=== PATIENT | male | born 1950 | race Caucasian/White ===

== ENCOUNTER 2016-05-07 20:30 | Emergency (ER) | payer MEDICARE, OTHER ==
[2016-05-07 20:41] VITALS: BP 171/84; PULSE 62; TEMP 97.8; BMI 29.9
--- NOTE | 2016-05-07 20:52 | PDOC ---
History of Present Illness - General Chief Complaint: Pain Stated Complaint: BACK PAIN, LEG PAIN Time Seen by Provider: 05/07/16 20:40 - History of Present Illness Initial Comments: This 65-year-old man with a history of type 2 diabetes mellitus, atherosclerotic heart disease (s/p coronary artery bypass surgery several years ago) presents with several day history of pain in the lower back. Patient describes pain as being on both sides of the lower back, worse with movement and bending and radiating to bilateral posterior proximal thighs. He denies overuse or trauma. He has no anterior abdominal pain. He states he had similar symptoms once in the past, for which he received Tylenol with codeine by his PMD with relief of symptoms. Patient has a history of gout for which he takes allopurinol but states that this does not feel like his gout pain which he usually feels in his feet. He denies numbness or weakness in the lower extremities. No previous history of diabetic neuropathy. Past History - Past Medical History Allergies/Adverse Reactions: Allergies Allergy/AdvReac Type Severity Reaction Status Date / Time No Known Allergies Allergy Verified 05/07/16 20:36 Home Medications: Ambulatory Orders Atenolol [Tenormin -] 100 mg PO DAILY 11/25/11 Sitagliptin Phosphate [Januvia] 100 mg PO DAILY 11/25/11 Diclofenac Sodium [Voltaren -] 75 mg PO BID PRN #20 tablet. 05/07/16 Rosuvastatin [Crestor -] 10 mg PO DAILY 05/07/16 Cardiac Disorders: Yes (CAD) Diabetes: Yes HTN: Yes Hypercholesterolemia: Yes - Surgical History Abdominal Surgery: Yes Cardiac Surgery: Yes (CABG) - Psycho/Social/Smoking Cessation Hx Anxiety: No Suicidal Ideation: No Smoking Status: No Smoking History: Never smoked Number of Cigarettes Smoked Daily: 0 Information on smoking cessation initiated: No Hx Alcohol Use: No Drug/Substance Use Hx: No Substance Use Type: None Review of Systems - Review of Systems Able to Perform ROS?: Yes Comments:: 12 point review of systems is negative except for what is noted in the history of present illness *Physical Exam - Vital Signs Last Vital Signs Temp Pulse Resp BP Pulse Ox 97.8 F 62 18 171/84 99 05/07/16 20:30 05/07/16 20:30 05/07/16 20:30 05/07/16 20:30 05/07/16 20:30 - Physical Exam Comments: GENERAL: The patient is awake, alert, and fully oriented, in no acute distress. Vital signs as noted. HEAD: Normal with no signs of trauma. EYES: Pupils equal, round and reactive to light, extraocular movements intact, sclera anicteric, conjunctiva clear with no pallor. ENT: moist mucous membranes. Ears normal, nares patent, oropharynx clear without exudates. NECK: Normal range of motion, supple without lymphadenopathy, JVD, or masses. LUNGS: Breath sounds equal, clear to auscultation bilaterally. No wheeze/ crackles. HEART: Regular rate and rhythm, normal S1 and S2 without murmur or rub. ABDOMEN: Soft/nontender/nondistended. BS wnl. No guarding or rebound. No palpable masses. No hepatosplenomegaly. EXTREMITIES: Normal range of motion, no edema. No clubbing or cyanosis. No cords, erythema, or tenderness. NEUROLOGICAL: Cranial nerves II through XII grossly intact. Normal speech, normal gait pain with straight leg raising at 45 degrees bilaterally; motor 5/5 throughoutno sensory defi PSYCH: Normal mood, normal affect. SKIN: Warm, Dry, normal turgor, no rashes or lesions noted. ED Treatment Course - LABORATORY CBC & Chemistry Diagram: 05/07/16 21:30 05/07/16 21:30 Medical Decision Making - Medical Decision Making This 65-year-old man with a history of diabetes mellitus and atherosclerotic heart disease, presents with a few day history of lower back pain, worse with movement and radiating to posterior proximal thighs. No history of overuse or trauma. The patient has had similar symptoms in the past which resolved with Tylenol No. 3 with codeine. Exam shows mild pain with straight leg raising bilaterally but no local tenderness and no evidence of abdominal masses/aneurysm. Bilateral femoral pulses are palpable. CBC and chemistry profile was sent to evaluate for renal functioning. Uric acid level was sent CBC is essentially normal. Chemistry profile shows grossly normal renal function with a BUN of 25 and creatinine of 1.3;random glu is 238; remainder of the values show no significant abnormalities. Uric acid is normal. Clinical presentation most consistent with musculoskeletal etiology for his pain. However, because of the patient's significant past medical history of diabetes mellitus and atherosclerotic disease, he will need further workup to fully rule out vascular etiology. Results and plan discussed with the patient.the patient understands and agrees to plan. Patient will be given Toradol 30 mg IV for anti-inflammatory and analgesic effects. Patient should follow-up with his PMD within 2-3 days. Diclofenac 75 mg twice a day as needed for pain will be prescribed; he should return to the ER if he has more severe pain *DC/Admit/Observation/Transfer Diagnosis at time of Disposition: Low back pain Qualifiers: Chronicity: chronic Back pain laterality: bilateral Sciatica presence: with sciatica Sciatica laterality: bilateral sciatica Qualified Code(s): M54.42 - Lumbago with sciatica, left side - Discharge Dispostion Disposition: HOME Condition at time of disposition: Stable - Prescriptions Prescriptions: Diclofenac Sodium [Voltaren -] 75 mg PO BID PRN #20 tablet.dr GARCIA Reason: Pain - Referrals Referrals: STAFF,NOT ON [Primary Care Provider] - - Patient Instructions Printed Discharge Instructions: Low Back Pain Additional Instructions: Diclofenac 75 mg twice a day as needed ; take with food take other medications as prescribed followup with your doctor within 2-3 days return to ER if you have worsening pain Print Language: GHANAIAN
[2016-05-07 21:53] LABS: BASOPHIL 0.6 % (0-2.0); EOSINOPHIL 3.3 % (0-4.5); MCH 28.1 pg (25.7-33.7); MCHC 31.6 g/dl (32.0-35.9); MEAN CELL VOLUME 88.8 fl (80-96); MEAN PLT VOLUME 8.7 fl (7.5-11.1); PLATELET COUNT 174 K/MM3 (134-434); RDW 13.8 % (11.9-15.9); WHITE BLOOD COUNT 6.2 K/mm3 (4.0-10.0)
[2016-05-07 22:02] LABS: ALBUMIN 4.3 g/dl (3.5-5.0); CALCIUM 9.6 mg/dl (8.4-10.2); CREATININE 1.3 mg/dl (0.6-1.3)
[2016-05-07] MEDS ORDERED: KETOROLAC TROMETHAMINE 30 MG/1 ML VIAL IVPUSH ONE (22:22)
[2016-05-07] MEDS ORDERED: KETOROLAC TROMETHAMINE 30 MG/1 ML VIAL ONE (22:23)
== END 2016-05-07 22:36 | disposition home or self-care (01) ==
LOC: FER 20:30
PROC: 3E0333Z Introduction of Anti-inflammatory into Peripheral Vein, Percutaneous Approach (ICD-10-PCS; principal; 2016-05-07)
DX: M54.42 Lumbago with sciatica, left side (principal); E11.9 Type 2 diabetes mellitus without complications; I25.10 Atherosclerotic heart disease of native coronary artery without angina pectoris; Z95.1 Presence of aortocoronary bypass graft; I10 Essential (primary) hypertension; E78.00 Pure hypercholesterolemia, unspecified
CPT/HCPCS: 36415; 80053; 84550; 85025; 96374; 99283-25

== ENCOUNTER 2016-07-21 19:19 | Emergency (ER) | payer MEDICARE, OTHER ==
[2016-07-21 19:29] VITALS: BP 144/100; PULSE 55; TEMP 98.2; BMI 27.9
--- NOTE | 2016-07-21 19:48 | PDOC ---
[id number] No Limitations - History of Present Illness Initial Comments: 07/21/16 21:09 The patient is a 65 year old male, with a significant past medical history of type 2 diabetes mellitus, atherosclerotic heart disease (s/p coronary artery bypass surgery several years ago) hypertension, hyperlipidemia, and gout, who presents to the emergency department with intermittent dizziness for the past two weeks. The patient reports that he feels dizzy and this sensation is exacerbated when he moves his head. He states that he has experienced this sensation previously. 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 Allergies: None Past surgical history: coronary artery bypass surgery Social history: Never smoked <Britney Fernandez - Last Filed: 07/21/16 21:16> <Terri Valdivia - Last Filed: 07/22/16 01:27> - General Chief Complaint: Lightheaded Stated Complaint: DIZZINESS Time Seen by Provider: 07/21/16 19:38 Past History <Britney Fernandez - Last Filed: 07/21/16 21:16> - Past Medical History Cardiac Disorders: Yes (CAD) Diabetes: Yes HTN: Yes Hypercholesterolemia: Yes - Surgical History Abdominal Surgery: Yes Cardiac Surgery: Yes (CABG) - Psycho/Social/Smoking Cessation Hx Anxiety: No Suicidal Ideation: No Smoking Status: No Smoking History: Never smoked Number of Cigarettes Smoked Daily: 0 Hx Alcohol Use: No Drug/Substance Use Hx: No Substance Use Type: None <Terri Valdivia - Last Filed: 07/22/16 01:27> - Past Medical History Allergies/Adverse Reactions: Allergies Allergy/AdvReac Type Severity Reaction Status Date / Time No Known Allergies Allergy Verified 05/07/16 20:36 Home Medications: Ambulatory Orders Atenolol [Tenormin -] 100 mg PO DAILY 11/25/11 Diclofenac Sodium [Voltaren -] 75 mg PO BID PRN #20 tablet. 05/07/16 Allopurinol [Zyloprim -] 100 mg PO DAILY 07/21/16 Lisinopril [Prinivil] 5 mg PO DAILY 07/21/16 Meclizine HCl [Antivert -] 25 mg PO TID PRN #21 tablet 07/21/16 Metformin HCl [Metformin HCl ER] 1,000 mg PO DAILY 07/21/16 Review of Systems - Review of Systems Able to Perform ROS?: Yes Comments:: 07/21/16 21:10 CONSTITUTIONAL: +intermittent dizziness Absent: fever, no chills, no fatigue EYES: Absent: visual changes ENT: Absent: ear pain, no sore throat CARDIOVASCULAR: Absent: chest pain, no palpitations RESPIRATORY: Absent: cough, no SOB GI: Absent: abdominal pain, no nausea, no vomiting, no constipation, no diarrhea GENITOURINARY: Absent: dysuria, no frequency, no hematuria MUSCULOSKELETAL: Absent: back pain, no arthralgia, no myalgia SKIN: Absent: rash <Britney Fernandez - Last Filed: 07/21/16 21:16> *Physical Exam - Vital Signs Last Vital Signs Temp Pulse Resp BP Pulse Ox 98.2 F 55 L 20 144/100 100 07/21/16 19:26 07/21/16 19:26 07/21/16 19:26 07/21/16 19:26 07/21/16 19:26 - Physical Exam Comments: 07/21/16 21:10 GENERAL: The patient is awake, alert, and fully oriented, in no acute distress. HEAD: Normal with no signs of trauma. EYES: Pupils equal, round and reactive to light, extraocular movements intact, sclera anicteric, conjunctiva clear with no pallor. ENT: Ears normal, nares patent, oropharynx clear without exudates. Moist mucous membranes. NECK: Normal range of motion, supple without lymphadenopathy, JVD, or masses. LUNGS: Breath sounds equal, clear to auscultation bilaterally. No wheeze/ crackles. HEART: Regular rate and rhythm, normal S1 and S2 without murmur or rub. ABDOMEN: Soft/nontender/nondistended. BS wnl. No guarding or rebound. No palpable masses. No hepatosplenomegaly. EXTREMITIES: Normal range of motion, no edema. No clubbing or cyanosis. No cords, erythema, or tenderness. NEUROLOGICAL: Cranial nerves II through XII grossly intact. Normal speech, normal gait. PSYCH: Normal mood, normal affect. SKIN: Warm, Dry, normal turgor, no rashes or lesions noted. <Britney Fernandez - Last Filed: 07/21/16 21:16> - Vital Signs Last Vital Signs Temp Pulse Resp BP Pulse Ox 98.2 F 55 L 20 144/100 100 07/21/16 19:26 07/21/16 19:26 07/21/16 19:26 07/21/16 19:26 07/21/16 19:26 <Terri Valdivia - Last Filed: 07/22/16 01:27> ED Treatment Course - LABORATORY CBC & Chemistry Diagram: 07/21/16 19:35 07/21/16 19:35 - ADDITIONAL ORDERS Additional order review: Laboratory Results 07/21/16 07/21/16 19:35 19:35 Sodium 134 L Potassium 4.7 Chloride 101 Carbon Dioxide 24 Anion Gap 9 BUN 24 H Creatinine 1.1 Creat Clearance w eGFR > 60 Random Glucose 236 H Calcium 9.8 Total Bilirubin 0.8 AST 27 ALT 26 D Alkaline Phosphatase 54 Creatine Kinase 102 Troponin I < 0.03 L Total Protein 7.1 Albumin 4.3 07/21/16 19:35 RBC 4.73 MCV 87.1 MCHC 33.7 RDW 13.0 MPV 8.5 Neutrophils % 65.8 Lymphocytes % 24.2 Monocytes % 6.4 Eosinophils % 3.1 Basophils % 0.5 <Britney Fernandez - Last Filed: 07/21/16 21:16> - LABORATORY CBC & Chemistry Diagram: 07/21/16 19:35 07/21/16 19:35 <Terri Valdivia - Last Filed: 07/22/16 01:27> Medical Decision Making - Medical Decision Making 07/21/16 21:16 CT Head Without Contrast Reported by: Dr. Anabel Kruger Reviewed by: Dr. Terri Valdivia Impression: There is no evidence of an acute intracranial process, intracranial hemorrhage or mass effect. There is atherosclerotic vascular calcification of the internal carotid arteries and vertebral arteries bilaterally at the skull base. Ventricular size is concordant with the degree of atrophy. The visualized portions of the orbits, paranasal and mastoid sinuses are unremarkable. If there is a clinical suspicion of an acute intracranial and if there is no clinical contraindication, MRI brain may be helpful. <Britney Fernandez - Last Filed: 07/21/16 21:16> - Medical Decision Making Documentation has been prepared under my direction and personally reviewed by me in its entirety. I attest that this documented accurately reflects all work, treatment, procedures and medical decision making performed by me. As noted above, this 65-year-old man with a history of hypertension and diabetes mellitus presents with 1 day history of positional vertigo. Patient states that he clearly has the sensation of spinning only with movement of his head: Demonstrating that hyperextending his head and turning it to the right would induce this sensation. Of note, the patient did not have significant nystagmus while he was experiencing his vertigo. Besides his HTN/DM history, patient had also been seen in the past by an ear nose and throat surgeon for tinnitus/hearing loss in the left ear. No previous significant history of vertigo, however. Patient has not had any nausea/vomiting associated with his vertigo. Exam as noted Noncontrast head CT shows no evidence of mass/stroke/other intracranial abnormality. Clinical presentation most consistent with benign positional vertigo. The patient has had no significant disabling affects of his vertigo: He is able to ambulate stably and has had no nausea or vomiting. Patient given meclizine 25 mg by mouth Patient will be discharged with instructions to follow-up with his general medical doctor within the next few days. Prescription for meclizine 25 mg up to 3 times a day as needed for vertigo the issue to his pharmacy. He should return to the emergency room if he has severe, persistent vertigo or experiences new neurologic symptoms. <Terri Valdivia - Last Filed: 07/22/16 01:27> *DC/Admit/Observation/Transfer - Attestations Scribe Attestion: 07/21/16 21:11 Documentation prepared by YASEMIN Mack, acting as emergency medical services coordinator for Terri Valdivia MD. <Britney Fernandez - Last Filed: 07/21/16 21:16> <Terri Valdivia - Last Filed: 07/22/16 01:27> Diagnosis at time of Disposition: Vertigo - Discharge Dispostion Disposition: HOME Condition at time of disposition: Stable - Prescriptions Prescriptions: Meclizine HCl [Antivert -] 25 mg PO TID PRN #21 tablet PRN Reason: Vertigo - Referrals Referrals: STAFF,NOT ON [Primary Care Provider] - Esequiel Cali MD [Staff Physician] - - Patient Instructions Printed Discharge Instructions: Benign Paroxysmal Positional Vertigo Additional Instructions: meclizine 25mg up to 3 times a day for vertigo followup with your general doctor within 2-3 days followup with ENT doctor( Dr Cali group) within 5 days return to ER if you have persistent, severe dizziness
[2016-07-21 19:58] LABS: BASOPHIL 0.5 % (0-2.0); EOSINOPHIL 3.1 % (0-4.5); MCH 29.4 pg (25.7-33.7); MCHC 33.7 g/dl (32.0-35.9); MEAN CELL VOLUME 87.1 fl (80-96); MEAN PLT VOLUME 8.5 fl (7.5-11.1); NEUTROPHILS 65.8 % (42.8-82.8); PLATELET COUNT 253 K/MM3 (134-434); WHITE BLOOD COUNT 6.1 K/mm3 (4.0-10.8)
[2016-07-21 20:13] LABS: ALBUMIN 4.3 g/dl (3.5-5.0); ALK PHOS 54 U/L (32-92); ANION GAP 9 (8-16); BILIRUBIN,TOTAL 0.8 mg/dl (0.2-1.0); CALCIUM 9.8 mg/dl (8.4-10.2); CO2 24 mmol/L (22-28); COCKROFT - GAULT 70.94; CREATININE 1.1 mg/dl (0.6-1.3); GLUCOSE,RANDOM 236 mg/dl (74-106); SGOT/AST 27 U/L (10-42); SGPT/ALT 26 U/L (10-40); TOT PROT 7.1 g/dl (6.4-8.3)
[2016-07-21 20:14] LABS: CPK(DFH) 102 IU/L (38-174)
[2016-07-21 20:24] LABS: TROPONIN I (DFP) < 0.03 ng/ml (0.03-0.50)
[2016-07-21] MEDS ORDERED: MECLIZINE HCL 25 MG TABLET (FP) PO ONE (21:17)
[2016-07-21] MEDS ORDERED: MECLIZINE HCL 25 MG TABLET (FP) ONE (21:22)
== END 2016-07-21 21:31 | disposition home or self-care (01) ==
LOC: FER 19:19
DX: R42 Dizziness and giddiness (principal); I10 Essential (primary) hypertension; E11.9 Type 2 diabetes mellitus without complications
CPT/HCPCS: 36415; 70450-TC; 80053; 82550; 84484; 85025; 99281-25

== ENCOUNTER 2020-12-19 04:25 | Day surgery (SDC) | payer OTHER ==
[2020-12-15 15:37] VITALS: BMI 26.6
[2020-12-19 11:01] VITALS: BP 197/91; PULSE 62; TEMP 98.7
== END 2020-12-19 10:50 | disposition home or self-care (01) ==
LOC: JASU-SURG 04:25
PROVIDERS: ATTEND Urology
DX: Z53.8 Procedure and treatment not carried out for other reasons (principal)
CPT/HCPCS: 82962

== ENCOUNTER 2021-06-21 05:25 | Day surgery (SDC) | payer OTHER ==
[2021-06-20 15:17] VITALS: BMI 28.1
[2021-06-21] MEDS ORDERED: MIDAZOLAM HCL 2 MG/2 ML SINGLE DOSE VIAL ONE (11:42)
[2021-06-21] MEDS ORDERED: KETOROLAC TROMETHAMINE 30 MG/1 ML VIAL ONE (11:42)
[2021-06-21 14:55] VITALS: BP 126/69; PULSE 61; TEMP 98.2
== END 2021-06-21 14:25 | disposition home or self-care (01) ==
LOC: JASU-SURG 05:25
PROVIDERS: ATTEND Urology
PROC: 0TF4XZZ Fragmentation in Left Kidney Pelvis, External Approach (ICD-10-PCS; principal; 2021-06-21 11:30)
DX: N20.0 Calculus of kidney (principal)
CPT/HCPCS: 82962; C9803-CS; U0003; U0005

== ENCOUNTER 2023-02-13 03:40 | Day surgery (SDC) | payer OTHER ==
[2023-02-11 15:31] VITALS: BMI 29.6
[2023-02-13 08:04] VITALS: RESP 18
[2023-02-13 09:47] VITALS: TEMP 97.5
[2023-02-13 13:17] VITALS: BP 164/84; PULSE 57
== END 2023-02-13 11:19 | disposition home or self-care (01) ==
LOC: JASU-ENDO 03:40
PROVIDERS: ATTEND Internal Medicine Gastroenterology
PROC: 0DJ08ZZ Inspection of Upper Intestinal Tract, Via Natural or Artificial Opening Endoscopic (ICD-10-PCS; 2023-02-13)
PROC: 0DJ08ZZ Inspection of Upper Intestinal Tract, Via Natural or Artificial Opening Endoscopic (ICD-10-PCS; 2023-02-13)
PROC: 0DJD8ZZ Inspection of Lower Intestinal Tract, Via Natural or Artificial Opening Endoscopic (ICD-10-PCS; principal; 2023-02-13 09:00)
DX: Z12.11 Encounter for screening for malignant neoplasm of colon (principal); K63.5 Polyp of colon; K21.00 Gastro-esophageal reflux disease with esophagitis, without bleeding; K29.70 Gastritis, unspecified, without bleeding; R07.9 Chest pain, unspecified; R12 Heartburn; I10 Essential (primary) hypertension; E11.42 Type 2 diabetes mellitus with diabetic polyneuropathy; Z79.4 Long term (current) use of insulin; Z79.85 Long-term (current) use of injectable non-insulin antidiabetic drugs
CPT/HCPCS: 43235; G0121; 82962

== ENCOUNTER 2023-03-27 04:08 | Day surgery (SDC) | payer OTHER ==
[2023-03-22 11:05] VITALS: BMI 29.6
[2023-03-27 11:43] VITALS: BP 158/59; PULSE 56; RESP 18; TEMP 97
== END 2023-03-27 12:00 | disposition home or self-care (01) ==
LOC: JASU-ENDO 04:08
PROVIDERS: ATTEND Internal Medicine Gastroenterology
PROC: 0DBH8ZX Excision of Cecum, Via Natural or Artificial Opening Endoscopic, Diagnostic (ICD-10-PCS; 2023-03-27)
PROC: 0DB98ZX Excision of Duodenum, Via Natural or Artificial Opening Endoscopic, Diagnostic (ICD-10-PCS; 2023-03-27)
PROC: 0DB78ZX Excision of Stomach, Pylorus, Via Natural or Artificial Opening Endoscopic, Diagnostic (ICD-10-PCS; 2023-03-27)
PROC: 0DB68ZX Excision of Stomach, Via Natural or Artificial Opening Endoscopic, Diagnostic (ICD-10-PCS; 2023-03-27)
PROC: 0DBK8ZX Excision of Ascending Colon, Via Natural or Artificial Opening Endoscopic, Diagnostic (ICD-10-PCS; principal; 2023-03-27 10:00)
DX: Z12.11 Encounter for screening for malignant neoplasm of colon (principal); K12.2 Cellulitis and abscess of mouth; K63.5 Polyp of colon; K31.89 Other diseases of stomach and duodenum
CPT/HCPCS: 82962; 88305-TC; 88342-TC

== ENCOUNTER 2023-06-17 18:00 | Observation (INO) | payer OTHER ==
[2023-06-17 18:21] VITALS: BMI 29.9
[2023-06-17 19:00] LABS: BASO % 0.8 % (0-2.0); EOS % 3.8 % (0-4.5); HEMATOCRIT 34.9 % (35.4-49); HEMOGLOBIN 12.1 GM/dL (11.7-16.9); LYMPH % 24.7 % (8-40); MCH 30.2 pg (25.7-33.7); MCHC 34.6 g/dl (32.0-35.9); MEAN CELL VOLUME 87.2 fl (80-96); MONO % 9.3 % (3.8-10.2); NEUT % 61.4 % (42.8-82.8); PLATELET COUNT 190 10^3/uL (134-434); RDW 13.3 % (11.9-15.9); WHITE BLOOD COUNT 6.1 K/mm3 (4.0-10.0)
[2023-06-17 19:02] LABS: INR 1.04 (0.83-1.09); PROTHROMBIN TIME (PATIENT) 12.1 SEC (9.7-13.0)
[2023-06-17 19:05] LABS: ACTIVATED PTT 31.5 SECONDS (25.2-36.5)
[2023-06-17 19:20] LABS: POTASSIUM 4.9 mmol/L (3.5-5.1)
[2023-06-17 19:23] LABS: CALCIUM 8.8 mg/dL (8.5-10.1)
[2023-06-17 19:24] LABS: ALBUMIN 3.5 g/dl (3.4-5.0)
[2023-06-17 19:25] LABS: BLOOD UREA NITROGEN 18.6 mg/dL (7-18)
[2023-06-17 19:27] LABS: CREATININE 1.3 mg/dL (0.55-1.3)
[2023-06-17 19:28] LABS: TOT PROT 6.3 g/dl (6.4-8.2)
[2023-06-17 19:30] LABS: BILIRUBIN,TOTAL 0.8 mg/dL (0.2-1)
[2023-06-17 22:50] LABS: URINE APPEARANCE CLEAR; URINE BILIRUBIN NEGATIVE (NEGATIVE); URINE COLOR YELLOW; URINE GLUCOSE (UA) 3+ (NEGATIVE); URINE KETONE NEGATIVE (NEGATIVE); URINE LEUK ESTERASE NEGATIVE (NEGATIVE); URINE NITRITE NEGATIVE (NEGATIVE); URINE PROTEIN NEGATIVE (NEGATIVE); URINE UROBILINOGEN 0.2 mg/dL (0.2-1.0)
[2023-06-18 06:20] VITALS: TEMP 98
[2023-06-18 07:01] LABS: BASO % 0.9 % (0-2.0); EOS % 4.9 % (0-4.5); HEMATOCRIT 36.8 % (35.4-49); HEMOGLOBIN 12.4 GM/dL (11.7-16.9); LYMPH % 31.7 % (8-40); MCH 29.3 pg (25.7-33.7); MCHC 33.6 g/dl (32.0-35.9); MEAN CELL VOLUME 87.2 fl (80-96); MEAN PLT VOLUME 7.9 fl (7.5-11.1); MONO % 9.4 % (3.8-10.2); NEUT % 53.1 % (42.8-82.8); PLATELET COUNT 189 10^3/uL (134-434); RBC 4.22 M/mm3 (4.00-5.60); RDW 13.5 % (11.9-15.9); WHITE BLOOD COUNT 5.1 K/mm3 (4.0-10.0)
[2023-06-18 07:19] LABS: POTASSIUM 4.3 mmol/L (3.5-5.1)
[2023-06-18 07:23] LABS: ALBUMIN 3.1 g/dl (3.4-5.0); BLOOD UREA NITROGEN 18.4 mg/dL (7-18); CALCIUM 8.9 mg/dL (8.5-10.1); MAGNESIUM 1.5 mg/dL (1.8-2.4)
[2023-06-18 07:26] LABS: CREATININE 1.2 mg/dL (0.55-1.3); PHOSPHOROUS 3.3 mg/dL (2.5-4.9)
[2023-06-18] MEDS ORDERED: MAGNESIUM SULFATE IN WATER 2 GM/50 ML IVPB IVPB ONE (09:23)
[2023-06-18] MEDS: INSULIN ASPART SLIDING SCALE (NOVOLOG) 1 VIAL SQ SCH (09:31)
[2023-06-18] MEDS: MAGNESIUM SULF 50% (8.12 MEQ/2 ML-1 GM VIAL) IVPB ONE (09:32)
[2023-06-18] MEDS: ENOXAPARIN NA (PORCINE) 40 MG/0.4 ML DISP.SYRIN SQ SCH (12:05)
[2023-06-18 12:21] VITALS: BP 160/76; PULSE 72; RESP 18
== END 2023-06-18 13:45 | disposition left against medical advice (07) ==
LOC: JER 18:00 → JERBED 21:10
PROVIDERS: ADMIT Internal Medicine; ATTEND Internal Medicine
PROC: 3E023GC Introduction of Other Therapeutic Substance into Muscle, Percutaneous Approach (ICD-10-PCS; principal; 2023-06-17)
PROC: 3E013VG Introduction of Insulin into Subcutaneous Tissue, Percutaneous Approach (ICD-10-PCS; 2023-06-17)
PROC: 3E033GC Introduction of Other Therapeutic Substance into Peripheral Vein, Percutaneous Approach (ICD-10-PCS; 2023-06-17)
DX: Z04.1 Encounter for examination and observation following transport accident (principal); I25.10 Atherosclerotic heart disease of native coronary artery without angina pectoris; E11.9 Type 2 diabetes mellitus without complications; I11.0 Hypertensive heart disease with heart failure; E78.5 Hyperlipidemia, unspecified; Z29.89 Encounter for other specified prophylactic measures; V49.9XXA Car occupant (driver) (passenger) injured in unspecified traffic accident, initial encounter; Y93.89 Activity, other specified; Y92.410 Unspecified street and highway as the place of occurrence of the external cause
CPT/HCPCS: 36415; 70450-TC; 70496-TC; 70498-TC; 71045-TC-FY; 72170-TC-FY; 80053; 80061; 81003; 82550; 82962; 83036; 83735; 84100; 84443; 84484; 85025; 85610; 85730; 86850; 86900; 86901; 93005; 93010; 99285-25; G0378

== ENCOUNTER 2023-11-06 04:39 | Day surgery (SDC) | payer OTHER ==
[2023-11-05 16:28] VITALS: BMI 29.8
[2023-11-06] MEDS: TETRACAINE 0.5% OPHTH SOLN 2 ML BOTTLE OS ONE
[~2023-11-06 04:39] MED LIST: ACETAMINOPHEN 325 MG TABLET (FP) PO PRN
[2023-11-06] MEDS ORDERED: LIDOCAINE HCL/PF 1% SDV 5ML VIAL ONE (07:28)
[2023-11-06] MEDS ORDERED: LIDOCAINE HCL/PF 2% SDV 5ML VIAL ONE (07:28)
[2023-11-06] MEDS ORDERED: PHENYLEPHRINE/KETOROLAC 4 ML VIAL IO ONE (07:29)
[2023-11-06] MEDS ORDERED: BSS (NA/CA/MG/K) BALANCED SALT SOLUTION OPHTH SOLN 15 ML BOTTLE ONE (07:29)
[2023-11-06] MEDS ORDERED: BUPIVACAINE HCL/PF 0.75% 10 ML VIAL ONE (07:29)
[2023-11-06] MEDS ORDERED: POVIDONE-IODINE 5% OPHTHALMIC PREP 30 ML SOLUTION ONE (07:29)
[2023-11-06] MEDS ORDERED: CYCLOPENTOLATE HCL 1% OPHTH SOLN 2 ML BOTTLE ONE (10:10)
[2023-11-06] MEDS ORDERED: OFLOXACIN 0.3% OPHTHALMIC SOLUTION 5 ML BOTTLE ONE (10:10)
[2023-11-06] MEDS ORDERED: PHENYLEPHRINE 2.5% OPTHALMIC DROP 2ML BOTTLE ONE (10:10)
[2023-11-06] MEDS ORDERED: KETOROLAC TROMETHAMINE 0.5% EYE DROP 1 DROP DROPS ONE (10:10)
[2023-11-06] MEDS ORDERED: TROPICAMIDE 1% OPHTH SOLN 15 ML BOTTLE ONE (10:10)
[2023-11-06] MEDS: CYCLOPENTOLATE HCL 1% OPHTH SOLN 2 ML BOTTLE OP SCH (10:22)
[2023-11-06] MEDS: KETOROLAC TROMETHAMINE 0.5% EYE DROP 1 DROP DROPS OP SCH (10:22)
[2023-11-06] MEDS: TROPICAMIDE 1% OPHTH SOLN 15 ML BOTTLE OP SCH (10:22)
[2023-11-06] MEDS: OFLOXACIN 0.3% OPHTHALMIC SOLUTION 5 ML BOTTLE OP SCH (10:23)
[2023-11-06] MEDS: PHENYLEPHRINE 2.5% OPHTH SOLN 15 ML BOTTLE OP SCH (10:23)
[2023-11-06 10:34] VITALS: RESP 18
[2023-11-06] MEDS ORDERED: MIDAZOLAM HCL 2 MG/2 ML SINGLE DOSE VIAL ONE (11:45)
[2023-11-06] MEDS ORDERED: PROPOFOL 20 ML ONE (11:45)
[2023-11-06] MEDS: LIDOCAINE HCL/PF 2% SDV 5ML VIAL PNB ONE (11:54)
[2023-11-06] MEDS: BUPIVACAINE HCL/PF 0.75% 10 ML VIAL NR ONE (11:54)
[2023-11-06] MEDS: BSS (NA/CA/MG/K) BALANCED SALT SOLUTION OPHTH SOLN 15 ML BOTTLE OS ONE ×2 (12:01)
[2023-11-06] MEDS: LIDOCAINE HCL 1%, 10 MG/ML (20ML VIAL) NR ONE ×2 (12:01)
[2023-11-06] MEDS: CHONDROITIN SU A/HYALUR SOD 1 KIT IO ONE ×2 (12:01)
[2023-11-06] MEDS: TRYPAN BLUE 0.5 ML DISP.SYRIN IO ONE (12:05)
[2023-11-06] MEDS: VANCOMYCIN 500 MG VIAL (RESTRICTED TO ID ONLY) IVPB ONE ×2 (12:24)
[2023-11-06 15:10] VITALS: BP 148/75; PULSE 58; TEMP 97.5
== END 2023-11-06 13:40 | disposition home or self-care (01) ==
LOC: JASU-SURG 04:39
PROVIDERS: ATTEND Ophthalmology
PROC: 08RK3JZ Replacement of Left Lens with Synthetic Substitute, Percutaneous Approach (ICD-10-PCS; principal; 2023-11-06 12:01)
DX: H26.9 Unspecified cataract (principal)
CPT/HCPCS: 82962; J1097; V2632

== ENCOUNTER 2023-11-20 04:24 | Day surgery (SDC) | payer OTHER ==
[2023-11-18 10:24] VITALS: BMI 29.8
[2023-11-20] MEDS ORDERED: LIDOCAINE HCL/PF 1% SDV 5ML VIAL ONE (07:36)
[2023-11-20] MEDS ORDERED: POVIDONE-IODINE 5% OPHTHALMIC PREP 30 ML SOLUTION ONE (07:36)
[2023-11-20] MEDS ORDERED: PHENYLEPHRINE/KETOROLAC 4 ML VIAL IO ONE (07:36)
[2023-11-20] MEDS ORDERED: BSS (NA/CA/MG/K) BALANCED SALT SOLUTION OPHTH SOLN 15 ML BOTTLE ONE (07:36)
[2023-11-20] MEDS ORDERED: LIDOCAINE HCL/PF 2% SDV 5ML VIAL ONE (07:44)
[2023-11-20] MEDS ORDERED: BUPIVACAINE HCL/PF 0.75% 10 ML VIAL ONE (07:45)
[2023-11-20 10:20] VITALS: RESP 16
[2023-11-20] MEDS ORDERED: KETOROLAC TROMETHAMINE 0.5% EYE DROP 1 DROP DROPS ONE (10:28)
[2023-11-20] MEDS ORDERED: PHENYLEPHRINE 2.5% OPTHALMIC DROP 2ML BOTTLE ONE (10:28)
[2023-11-20] MEDS ORDERED: OFLOXACIN 0.3% OPHTHALMIC SOLUTION 5 ML BOTTLE ONE (10:28)
[2023-11-20] MEDS ORDERED: CYCLOPENTOLATE HCL 1% OPHTH SOLN 2 ML BOTTLE ONE (10:28)
[2023-11-20] MEDS ORDERED: TROPICAMIDE 1% OPHTH SOLN 15 ML BOTTLE ONE (10:28)
[2023-11-20] MEDS: CYCLOPENTOLATE HCL 1% OPHTH SOLN 2 ML BOTTLE OP SCH (10:34)
[2023-11-20] MEDS: TROPICAMIDE 1% OPHTH SOLN 15 ML BOTTLE OP SCH (10:34)
[2023-11-20] MEDS: KETOROLAC TROMETHAMINE 0.5% EYE DROP 1 DROP DROPS OP SCH (10:34)
[2023-11-20] MEDS: PHENYLEPHRINE 2.5% OPHTH SOLN 15 ML BOTTLE OP SCH (10:34)
[2023-11-20] MEDS: OFLOXACIN 0.3% OPHTHALMIC SOLUTION 5 ML BOTTLE OP SCH (10:35)
[2023-11-20] MEDS: BUPIVACAINE HCL/PF 0.75% 10 ML VIAL NR ONE ×2 (12:30)
[2023-11-20] MEDS: LIDOCAINE HCL/PF 2% SDV 5ML VIAL INF ONE ×2 (12:30)
[2023-11-20] MEDS: POVIDONE-IODINE 5% OPHTHALMIC PREP 30 ML SOLUTION OD ONE ×2 (12:33)
[2023-11-20] MEDS: LIDOCAINE HCL 1% PRESERVATIVE FREE - 30ML VIAL IO ONE ×2 (12:39)
[2023-11-20] MEDS: BSS (NA/CA/MG/K) BALANCED SALT SOLUTION OPHTH SOLN 15 ML BOTTLE OD ONE ×2 (12:40)
[2023-11-20] MEDS: CHONDROITIN SU A/HYALUR SOD 1 KIT IO ONE ×2 (12:42)
[2023-11-20] MEDS: PHENYLEPHRINE/KETOROLAC 4 ML VIAL IO ONE ×2 (12:53)
[2023-11-20 13:21] VITALS: TEMP 97.8
[2023-11-20 14:02] VITALS: BP 160/70; PULSE 59
== END 2023-11-20 14:05 | disposition home or self-care (01) ==
LOC: JASU-SURG 04:24
PROVIDERS: ATTEND Ophthalmology
PROC: 08RJ3JZ Replacement of Right Lens with Synthetic Substitute, Percutaneous Approach (ICD-10-PCS; principal; 2023-11-20 12:00)
DX: H26.9 Unspecified cataract (principal)
CPT/HCPCS: J1097; V2632